=== PATIENT | female | born 1980 | race Caucasian/White ===

== ENCOUNTER → 2018-01-17 | Outpatient (CLI) | payer BC | LOC: SUN.DIA 14:42 | DX: O24.419 Gestational diabetes mellitus in pregnancy, unspecified control (principal); Z3A.31 31 weeks gestation of pregnancy | CPT/HCPCS: G0108 ==

== ENCOUNTER 2018-02-03 15:58 | Outpatient (CLI) | payer BC ==
[2018-02-03] VITALS (9 sets, daily range): BP systolic 99–135; BP diastolic 56–78; PULSE 70–98; TEMP 98
[~2018-02-03] VITALS: Ht 160 cm; Wt 94.5 kg
[2018-02-03] MEDS ORDERED: PRENATAL MVI (16:29)
[2018-02-03] MEDS ORDERED: SLOW FE142 MG PO (16:29)
[2018-02-03] MEDS ORDERED: CALCIUM CARBON650 M2 (16:30)
[2018-02-03] MEDS ORDERED: TYLENOL 500MG500 MG PO (16:30)
[2018-02-03] MEDS ORDERED: BASAGLAR K100 UNIT/1 SQ (16:31)
[2018-02-03] MEDS ORDERED: PEPCID COMPLETE1 CTB PO (16:38)
[2018-02-03 17:09] LABS: BASO % 0.3 % (0.0-2.0); EOS # 0.1 (0.0-0.7); GRAN # 8.8 (1.4-6.5); GRAN % 76.5 % (42.2-75.2); HEMATOCRIT 31.7 % (37.0-47.0); HEMOGLOBIN 10.6 g/dl (12.5-16.0); LYMPH % 17.4 % (20.0-51.0); MEAN CELL VOLUME 90 fl (80.0-100.0); MEAN CORPUSCULAR HEMOGLOBIN 30 pg (27.0-31.0); MEAN CORPUSCULAR HGB CONC 33 g/dl (33.0-37.0); MEAN PLATELET VOLUME 9.6 fl (7.4-10.4); MONO # 0.5 (0.1-0.6); MONO % 4.4 % (1.7-9.3); PLATELET COUNT 184 K/mm3 (130-400); RED BLOOD COUNT 3.52 M/mm3 (4.10-5.30); REDCELL DISTRIBUTION WIDTH-CV 13.2 % (11.5-14.5)
[2018-02-03 17:17] LABS: COLLECTION METHOD CLEAN CATCH
[2018-02-03 17:18] LABS: ALBUMIN 3.4 gm/dL (3.5-5.0); BILIRUBIN,TOTAL 0.3 mg/dL (0.0-1.0); CALCIUM 8.7 mg/dL (8.4-10.2); CREATININE, serum 0.55 mg/dL (0.52-1.25); POTASSIUM 3.3 mmol/L (3.4-5.0); TOTAL PROTEIN 6.4 gm/dL (6.4-8.2)
[2018-02-03 17:39] LABS: MUCOUS Present /lpf; PH 7 (5-8); SQUAMOUS EPITHELIAL 0-2 /hpf; URINE APPEARANCE Clear; URINE BACTERIA Rare /hpf; URINE BILIRUBIN Negative (NEGATIVE); URINE BLOOD Negative (NEGATIVE); URINE COLOR Yellow; URINE GLUCOSE Negative (NEGATIVE); URINE KETONE Negative (NEGATIVE); URINE LEUKOCYTE ESTERASE Trace (NEGATIVE); URINE NITRATE Negative (NEGATIVE); URINE PROTEIN(semi-quant) Negative (NEGATIVE); URINE RBC 0-2 /hpf; URINE UROBILINOGEN Negative (NEGATIVE); URINE WBC 0-2 /hpf
== END 2018-02-03 19:15 | disposition home or self-care (01) ==
LOC: LDRO 15:58
PROVIDERS: Obstetrics & Gynecology
DX: O16.3 Unspecified maternal hypertension, third trimester (principal); Z3A.32 32 weeks gestation of pregnancy

== ENCOUNTER → 2018-02-08 | Outpatient (CLI) | payer BC ==
[~2018-02-08] MED LIST: BASAGLAR K100 UNIT/1 SQ; CALCIUM CARBON650 M2; PEPCID COMPLETE1 CTB PO; PRENATAL MVI; SLOW FE142 MG PO; TYLENOL 500MG500 MG PO
== END ==
LOC: SUN.DIA
DX: O24.419 Gestational diabetes mellitus in pregnancy, unspecified control (principal); Z3A.35 35 weeks gestation of pregnancy
CPT/HCPCS: G0108

== ENCOUNTER 2018-03-09 19:02 | Outpatient (CLI) | payer BC ==
[~2018-03-09] VITALS: Ht 160 cm; Wt 95.9 kg
[2018-03-09 19:29] VITALS: BP 143/82; PULSE 107; TEMP 98.6
[2018-03-09] MEDS ORDERED: GLUCOPHAGE XR500 M1 PO (19:34)
[2018-03-09 20:03] LABS: COLLECTION METHOD CLEAN CATCH
[2018-03-09 20:06] LABS: BASO % 0.2 % (0.0-2.0); EOS # 0.1 (0.0-0.7); EOS % 0.9 % (0-4.0); GRAN # 9.3 (1.4-6.5); GRAN % 77.3 % (42.2-75.2); HEMOGLOBIN 11.2 g/dl (12.5-16.0); LYMPH # 2.1 (1.2-3.4); LYMPH % 17.2 % (20.0-51.0); MEAN CELL VOLUME 89 fl (80.0-100.0); MEAN CORPUSCULAR HEMOGLOBIN 30 pg (27.0-31.0); MEAN CORPUSCULAR HGB CONC 34 g/dl (33.0-37.0); MEAN PLATELET VOLUME 10.5 fl (7.4-10.4); MONO # 0.5 (0.1-0.6); MONO % 4.1 % (1.7-9.3); PLATELET COUNT 189 K/mm3 (130-400); RED BLOOD COUNT 3.73 M/mm3 (4.10-5.30); REDCELL DISTRIBUTION WIDTH-CV 13.4 % (11.5-14.5)
[2018-03-09 20:08] LABS: HEMATOCRIT 33.2 % (37.0-47.0)
[2018-03-09 20:11] LABS: MUCOUS Present /lpf; PH 6 (5-8); SQUAMOUS EPITHELIAL 0-2 /hpf; URINE APPEARANCE Hazy; URINE BACTERIA Moderate /hpf; URINE BILIRUBIN Negative (NEGATIVE); URINE BLOOD Negative (NEGATIVE); URINE COLOR Yellow; URINE GLUCOSE Negative (NEGATIVE); URINE KETONE 1+ (NEGATIVE); URINE LEUKOCYTE ESTERASE Trace (NEGATIVE); URINE NITRATE Negative (NEGATIVE); URINE PROTEIN(semi-quant) Negative (NEGATIVE); URINE RBC None Seen /hpf; URINE UROBILINOGEN Negative (NEGATIVE); URINE WBC 0-2 /hpf
[2018-03-09 20:20] VITALS: BP 117/72; PULSE 101
[2018-03-09 20:23] LABS: ALBUMIN 3.5 gm/dL (3.5-5.0); BILIRUBIN,TOTAL 0.4 mg/dL (0.0-1.0); CALCIUM 9.4 mg/dL (8.4-10.2); CREATININE, serum 0.56 mg/dL (0.52-1.25); POTASSIUM 3.6 mmol/L (3.4-5.0); TOTAL PROTEIN 6.5 gm/dL (6.4-8.2)
[2018-03-09 20:41] VITALS: BP 106/64; PULSE 95
== END 2018-03-09 21:00 | disposition home or self-care (01) ==
LOC: LDRO 19:02
PROVIDERS: Obstetrics & Gynecology
DX: O62.9 Abnormality of forces of labor, unspecified (principal); O99.89 Other specified diseases and conditions complicating pregnancy, childbirth and the puerperium; R51 Headache; Z3A.37 37 weeks gestation of pregnancy

== ENCOUNTER 2018-03-22 05:44 | Inpatient (IN) | payer BC ==
[2018-03-22] VITALS (21 sets, daily range): BP systolic 100–128; BP diastolic 64–85; PULSE 70–92; TEMP 97.4–97.8
[~2018-03-22] VITALS: Ht 157.5 cm; Wt 95.9 kg
[~2018-03-22 05:44] MED LIST changes: +GLUCOPHAGE XR500 M1 PO
[2018-03-22 07:24] LABS: BASO % 0.2 % (0.0-2.0); EOS # 0.1 (0.0-0.7); EOS % 1.3 % (0-4.0); GRAN # 8.7 (1.4-6.5); HEMOGLOBIN 11.3 g/dl (12.5-16.0); LYMPH # 1.6 (1.2-3.4); LYMPH % 14.8 % (20.0-51.0); MEAN CELL VOLUME 90 fl (80.0-100.0); MEAN CORPUSCULAR HEMOGLOBIN 30 pg (27.0-31.0); MEAN CORPUSCULAR HGB CONC 33 g/dl (33.0-37.0); MEAN PLATELET VOLUME 10.7 fl (7.4-10.4); MONO # 0.6 (0.1-0.6); MONO % 5.2 % (1.7-9.3); PLATELET COUNT 177 K/mm3 (130-400); REDCELL DISTRIBUTION WIDTH-CV 13.5 % (11.5-14.5)
[2018-03-23 01:19] VITALS: BP 129/81; PULSE 74; TEMP 97.5
[2018-03-23 07:25] VITALS: BP 112/71; PULSE 73; TEMP 97.4
[2018-03-23 16:11] VITALS: BP 124/73; PULSE 87; TEMP 97.7
[2018-03-23 20:30] VITALS: BP 108/78; PULSE 73; TEMP 97.4
[2018-03-24 07:00] VITALS: BP 112/68; PULSE 70; TEMP 98.1
[2018-03-24] MEDS ORDERED: IBU800 M1 PO (08:51)
[2018-03-24] MEDS ORDERED: PERCOCET 325 MG1 TA2 PO (08:51)
[2018-03-24 16:09] VITALS: BP 134/84; PULSE 86; TEMP 98.1
[2018-03-24 20:20] VITALS: BP 124/75; PULSE 82; TEMP 97.8
[2018-03-25 07:15] VITALS: BP 136/83; PULSE 83; TEMP 97.4
== END 2018-03-25 12:30 | disposition home or self-care (01) | DRG 785 ==
LOC: OB 05:44
PROVIDERS: Student in an Organized Health Care Education/Training Program
PROC: 10D00Z1 Extraction of Products of Conception, Low, Open Approach (ICD-10-PCS; principal; 2018-03-22)
PROC: 0UB70ZZ Excision of Bilateral Fallopian Tubes, Open Approach (ICD-10-PCS; 2018-03-22)
DX: O65.5 Obstructed labor due to abnormality of maternal pelvic organs (principal); O34.211 Maternal care for low transverse scar from previous cesarean delivery; Z3A.39 39 weeks gestation of pregnancy; Z37.0 Single live birth; O24.424 Gestational diabetes mellitus in childbirth, insulin controlled; O99.214 Obesity complicating childbirth; O34.13 Maternal care for benign tumor of corpus uteri, third trimester; D25.9 Leiomyoma of uterus, unspecified; J45.909 Unspecified asthma, uncomplicated; O99.52 Diseases of the respiratory system complicating childbirth; Z88.2 Allergy status to sulfonamides; Z88.8 Allergy status to other drugs, medicaments and biological substances; Z91.040 Latex allergy status; Z30.2 Encounter for sterilization; O90.2 Hematoma of obstetric wound
CPT/HCPCS: J0690; J1885; J2270; J2370; J2405; J2590; J7120

== ENCOUNTER 2018-07-15 13:59 | Observation (INO) | payer BC ==
[~2018-07-15] VITALS: Ht 157.5 cm; Wt 92.0 kg
[~2018-07-15 13:59] MED LIST changes: +00186-0372-20 IH; +FLONASEALLERGY NS; +IBU800 M1 PO; +MOTRIN 800800 MG/TAB PO; +PERCOCET 325 MG1 TA2 PO; +TRISPRINTEC; +VALIUM 10MG/25 MG/ML IJ; +VALIUM 10MG10 MG/TAB PO; +ZYRTEC 10MG10 MG PO
[2018-07-15 14:35] LABS: COLLECTION METHOD CLEAN CATCH
[2018-07-15 14:38] LABS: BASO % 0.3 % (0.0-2.0); EOS # 0.2 (0.0-0.7); EOS % 1.1 % (0-4.0); GRAN % 79.9 % (42.2-75.2); HEMATOCRIT 38.3 % (37.0-47.0); LYMPH % 13.6 % (20.0-51.0); MEAN CELL VOLUME 86 fl (80.0-100.0); MEAN CORPUSCULAR HEMOGLOBIN 29 pg (27.0-31.0); MEAN CORPUSCULAR HGB CONC 34 g/dl (33.0-37.0); MONO # 0.7 (0.1-0.6); MONO % 4.7 % (1.7-9.3); PLATELET COUNT 245 K/mm3 (130-400); RED BLOOD COUNT 4.45 M/mm3 (4.10-5.30); REDCELL DISTRIBUTION WIDTH-CV 12.6 % (11.5-14.5)
[2018-07-15 14:40] LABS: PH 7 (5-8); SQUAMOUS EPITHELIAL None Seen /hpf; URINE APPEARANCE Clear; URINE BACTERIA None Seen /hpf; URINE BILIRUBIN Negative (NEGATIVE); URINE BLOOD 1+ (NEGATIVE); URINE COLOR Colorless; URINE GLUCOSE Negative (NEGATIVE); URINE KETONE Negative (NEGATIVE); URINE LEUKOCYTE ESTERASE Negative (NEGATIVE); URINE NITRATE Negative (NEGATIVE); URINE PROTEIN(semi-quant) Negative (NEGATIVE); URINE RBC None Seen /hpf; URINE UROBILINOGEN Negative (NEGATIVE)
[2018-07-15 14:41] LABS: ALBUMIN 4.2 gm/dL (3.5-5.0); BILIRUBIN,TOTAL 0.9 mg/dL (0.0-1.0); CALCIUM 9.3 mg/dL (8.4-10.2); CREATININE, serum 0.8 (0.52-1.25); POTASSIUM 3.7 mmol/L (3.4-5.0); TOTAL PROTEIN 7.3 gm/dL (6.4-8.2)
[2018-07-15 14:53] LABS: C-REACTIVE PROTEIN 22.1 mg/dL (0.0-0.9)
[2018-07-15] MEDS ORDERED: FLAGYL500 MG PO (16:08)
[2018-07-15] MEDS ORDERED: CIPRO 500MG TA500 MG PO (16:08)
[2018-07-15] MEDS ORDERED: PERCOCET 325 MG1 TA2 PO (16:08)
[2018-07-15] MEDS ORDERED: ZOFRAN 4MG T4 MG/TAB PO (16:08)
[2018-07-15] MEDS ORDERED: ZOLOFT 100MG100 MG PO (16:39)
[2018-07-15] MEDS ORDERED: CAMILA0.35 MG PO (16:39)
--- NOTE | 2018-07-15 17:15 | NUR ---
PATIENT ARRIVED TO ROOM 347 VIA WHEELCHAIR FROM ED. PATIENT SETTELED INTO ROOM.
--- NOTE | 2018-07-15 19:00 | NUR ---
REPORT GIVEN TO ANGÉLICA ALVAREZ.
[2018-07-15 19:29] VITALS: BP 116/66; PULSE 89; TEMP 98.5
[2018-07-15 19:35] VITALS: BP 116/66; PULSE 93; TEMP 98.5
[2018-07-16 00:05] VITALS: BP 104/53; PULSE 106; TEMP 98.3
[2018-07-16 04:00] VITALS: BP 97/48; PULSE 92; TEMP 98.4
--- NOTE | 2018-07-16 06:35 | NUR ---
PT HAD UNEVENTFUL NOC. REQUESTED PAIN MED AT HS FOR ABD PAIN. RECIEVED 2 DOSES OF ZOSYN THIS SHIFT. NO OTHER ISSUES OR CONSERS VOICED OVER NIGHT.
[2018-07-16 06:57] LABS: HEMOGLOBIN 11.7 g/dl (12.5-16.0); MEAN CELL VOLUME 89 fl (80.0-100.0); MEAN CORPUSCULAR HEMOGLOBIN 29 pg (27.0-31.0); MEAN CORPUSCULAR HGB CONC 33 g/dl (33.0-37.0); MEAN PLATELET VOLUME 10.1 fl (7.4-10.4); PLATELET COUNT 211 K/mm3 (130-400); RED BLOOD COUNT 3.99 M/mm3 (4.10-5.30); REDCELL DISTRIBUTION WIDTH-CV 12.5 % (11.5-14.5)
[2018-07-16 07:11] LABS: HEMATOCRIT 35.5 % (37.0-47.0)
[2018-07-16 07:15] LABS: ALBUMIN 3.6 gm/dL (3.5-5.0); BILIRUBIN,TOTAL 1.2 mg/dL (0.0-1.0); CALCIUM 9.1 mg/dL (8.4-10.2); CREATININE, serum 0.71 (0.52-1.25); TOTAL PROTEIN 6.3 gm/dL (6.4-8.2)
--- NOTE | 2018-07-16 07:30 | NUR ---
PATIENT TOOK HOME ZOLOFT AND CONTROL WITH RN IN THE ROOM.
[2018-07-16 08:00] VITALS: BP 116/63; PULSE 103; TEMP 97.2
--- NOTE | 2018-07-16 08:00 | NUR ---
PATIENT SITTING UP IN BED BREAST PUMPING. PATIENT IS A&O. VSS. BOWEL SOUNDS ACTIVE ALL FOUR QUADRANTS. PATIENT TOLERATING DIET WITHOUT ANY COMPLAINTS OF N/V. POSITIVE PEDAL PULSES EQUAL BILATERALLY. INT TO RIGHT AC. CALL LIGHT WITHIN REACH. PATIENT DENIES ANY NEEDS AT THIS TIME.
[2018-07-16 12:00] VITALS: BP 128/72; PULSE 89; TEMP 97.5
[2018-07-16] MEDS ORDERED: PERCOCET 325 MG1 TA2 PO (12:17)
[2018-07-16] MEDS ORDERED: AMOXICILLIN 8751 TAB PO (12:17)
--- NOTE | 2018-07-16 12:46 | NUR ---
Plan: Patient reports that plan is to DC home in [place]. Assessment: Patient reports that she resides wiht her Cornelius who is also her DPOA. Patient reports that she use [facility] for her medications and her PCP is Dr. Amaya. Patient indicated that she can transport herself home but will have come up. Patient denies the need for Home health and denies the use of any DME. Patient reports that she is independent.\ No additional needs identified.
[2018-07-16 13:15] LABS: BAND 1 % (0-10); LYMPHOCYTE 7 % (20.0-51.0); NEUTROPHILS 91 % (42.0-75.2); PLATELET ESTIMATE NORMAL (NORMAL)
--- NOTE | 2018-07-16 15:35 | NUR ---
DISCHARGE INSTRUCTIONS REVIEWED WITH PATIENT AND . ALL QUESTIONS ANSWERED. PATIENT PERSONAL BELONGINGS GATHERED. PATIENT AMBULATED TO PERSONAL VEHICAL WITH SURGICAL STAFF. PATIENT DISCHARGED.
== END 2018-07-16 15:35 | disposition home or self-care (01) ==
LOC: COL.ER 13:59 → SURG 16:54
PROVIDERS: Emergency Medicine; ADMIT Surgery
DX: K57.20 Diverticulitis of large intestine with perforation and abscess without bleeding (principal); Z88.1 Allergy status to other antibiotic agents; Z88.2 Allergy status to sulfonamides; Z91.040 Latex allergy status; Z88.8 Allergy status to other drugs, medicaments and biological substances
CPT/HCPCS: A4216; G0378; J0696; J0780; J1170; J2543; J7030; J7120; Q9967

== ENCOUNTER → 2020-08-12 | Outpatient (CLI) | payer BC ==
[~2020-08-12] MED LIST changes: +AMOXICILLIN 8751 TAB PO; +CAMILA0.35 MG PO; +CIPRO 500MG TA500 MG PO; +FLAGYL500 MG PO; +ZOFRAN 4MG T4 MG/TAB PO; +ZOLOFT 100MG100 MG PO
== END ==
LOC: MC.RAD 08:54
DX: Z12.31 Encounter for screening mammogram for malignant neoplasm of breast (principal)

== ENCOUNTER → 2021-12-01 | Outpatient (CLI) | payer BC | LOC: MC.RAD 09:17 | DX: Z12.31 Encounter for screening mammogram for malignant neoplasm of breast (principal) ==

== ENCOUNTER → 2023-01-19 | Outpatient (CLI) | payer BC | LOC: CANSCHCLI → COL.RAD 07:47 → MC.RAD 07:47 → COL.RAD 08:00 | DX: Z12.31 Encounter for screening mammogram for malignant neoplasm of breast (principal) ==